=== PATIENT | male | born 1990 | race Caucasian/White ===

== ENCOUNTER 2016-09-02 16:56 | Inpatient (IN) | payer MEDICAID ==
[~2016-09-02] VITALS: Ht 157.5 cm; Wt 69.4 kg
[~2016-09-02 16:56] MED LIST: OLAN15TA5 PO
[2016-09-02 21:20] VITALS: BP 109/69
[2016-09-02] MEDS ORDERED: ZOLPIDEM TARTRATE 10 MG TABLET PO PRN (21:30)
[2016-09-02] MEDS ORDERED: HALOPERIDOL 5 MG TABLET PO PRN (21:30)
[2016-09-02 22:13] VITALS: BP 118/70
[2016-09-03 07:03] VITALS: BP 122/75
[2016-09-03 08:49] VITALS: BP 114/64
[2016-09-03] MEDS: QUEtiapine FUMARATE 300 MG TABLET PO SCH ×2 (08:54→16:41)
[2016-09-03] MEDS: LORazepam 2 MG TABLET PO PRN ×2 (08:54→16:41)
[2016-09-03] MEDS: DIVALPROEX SODIUM 500 MG DR TABLET PO SCH ×2 (08:54→16:41)
[2016-09-03 16:08] VITALS: BP 116/68
[2016-09-04 06:55] VITALS: BP 121/75
[2016-09-04 08:00] VITALS: BP 103/62
[2016-09-04] MEDS: LORazepam 2 MG TABLET PO PRN (08:35)
[2016-09-04] MEDS: DIVALPROEX SODIUM 500 MG DR TABLET PO SCH ×2 (08:35→16:58)
[2016-09-04] MEDS: QUEtiapine FUMARATE 300 MG TABLET PO SCH ×2 (08:35→16:58)
[2016-09-04 16:04] VITALS: BP 118/67
[2016-09-04] MEDS ORDERED: LOPERAMIDE HCL 2 MG CAPSULE PO PRN (20:15)
[2016-09-04] MEDS ORDERED: BENZOCAINE/MENTHOL LOZENGE MM PRN (20:15)
[2016-09-04] MEDS ORDERED: BACITRACIN 28.4 GM OINTMENT TP PRN (20:15)
[2016-09-04] MEDS ORDERED: ACETAMINOPHEN 325 MG TABLET PO PRN (20:15)
[2016-09-04] MEDS ORDERED: PETROLATUM,WHITE 71 GM JELLY TP PRN (20:15)
[2016-09-04] MEDS ORDERED: MAG HYDROX/AL HYDROX/SIMETH ES 30 ML SUSPENSION UDCUP PO PRN (20:15)
[2016-09-04] MEDS ORDERED: MAGNESIUM HYDROXIDE SUSPENSION 30 ML UDCUP PO PRN (20:15)
[2016-09-04] MEDS ORDERED: ALBUTEROL SULFATE HFA 90 MCG/PUFF 8 GM INHALER IH PRN (20:15)
[2016-09-04] MEDS ORDERED: ONDANSETRON HCL 4 MG TABLET PO PRN (20:15)
[2016-09-04] MEDS ORDERED: CloNIDine HCL 0.1 MG TABLET PO PRN (20:15)
[2016-09-04] MEDS ORDERED: IBUPROFEN 600 MG TABLET PO PRN (20:15)
[2016-09-05 06:53] VITALS: BP 120/78
[2016-09-05] MEDS: QUEtiapine FUMARATE 300 MG TABLET PO SCH ×2 (08:22→16:06)
[2016-09-05] MEDS: OMEPRAZOLE 20 MG CAPSULE PO SCH (08:22)
[2016-09-05] MEDS: DOCUSATE SODIUM 100 MG CAPSULE PO SCH (08:22)
[2016-09-05] MEDS: DIVALPROEX SODIUM 500 MG DR TABLET PO SCH ×2 (08:22→16:06)
[2016-09-05 08:23] VITALS: BP 102/65
[2016-09-05 09:32] LABS: HEMATOCRIT 42.1 % (41-53); HEMOGLOBIN 13.8 g/dL (13.5-17.5); MEAN CORPUSCULAR HEMOGLOBIN 28.9 pg (26.0-34.0); MEAN CORPUSCULAR HGB CONC 32.8 G/dL (31.0-37.0); MEAN CORPUSCULAR VOLUME 88 fL (80-100); PLATELET COUNT (AUTO) 156 K/uL (150-450); RED BLOOD CELL COUNT(AUTO) 4.78 MIL/uL (4.50-5.90); RED CELL DISTRIBUTION WIDTH 15.3 % (11.5-14.5); WHITE BLOOD COUNT (AUTO) 4.6 K/uL (4.5-11.0)
[2016-09-05 09:57] LABS: ALANINE AMINOTRANSFERASE 9 U/L (12-78); ALBUMIN 2.9 g/dL (3.4-5.0); ANION GAP 6 mmol/L (8-16); ASPARTATE AMINOTRANSFERASE 17 U/L (15-37); BILIRUBIN,TOTAL 0.2 mg/dL (0.1-1.0); CALCIUM, TOTAL 8.3 mg/dL (8.8-10.5); CARBON DIOXIDE 29 mmol/L (22-29); CHLORIDE 107 mmol/L (98-107); CHOL/HDL RATIO 3.3 (4.2-7.3); CREATININE 0.74 mg/dL (0.60-1.30); GLOMERULAR FILTR. RATE CALC > 60 mL/min (>60); PHOSPHORUS 4.1 mg/dL (2.5-4.9); POTASSIUM 3.9 mmol/L (3.5-5.1); SODIUM SERUM 142 mmol/L (136-145); THYROID STIMULATING HORMONE 8.67 uIU/mL (0.36-3.74); TOTAL PROTEIN, SERUM 6.4 g/dL (6.4-8.2); UREA NITROGEN, BLOOD 16 mg/dL (7-18)
[2016-09-05 11:25] LABS: BAND NEUTROPHILS % (MANUAL) 1 % (1-5); EOSINOPHILS % (MANUAL) 1 % (1-6); LYMPHOCYTES % (MANUAL) 32 % (22-44); RBC MORPHOLOGY COMMENT NORMAL RBC MORPH; TOTAL CELLS COUNTED 100
[2016-09-05 16:00] VITALS: BP 108/65
[2016-09-05] MEDS: LORazepam 2 MG TABLET PO PRN (16:06)
[2016-09-06 06:10] VITALS: BP 108/69
[2016-09-06] MEDS: LEVOTHYROXINE SODIUM 50 MCG TABLET PO SCH (06:38)
[2016-09-06 08:30] VITALS: BP 105/69
[2016-09-06] MEDS: OMEPRAZOLE 20 MG CAPSULE PO SCH (08:40)
[2016-09-06] MEDS: DOCUSATE SODIUM 100 MG CAPSULE PO SCH (08:40)
[2016-09-06] MEDS: DIVALPROEX SODIUM 500 MG DR TABLET PO SCH ×2 (08:42→17:14)
[2016-09-06] MEDS: CHOLECALCIFEROL (VIT D3) 1,000 UNITS TABLET PO SCH (08:44)
[2016-09-06] MEDS: QUEtiapine FUMARATE 300 MG TABLET PO SCH ×2 (08:44→17:14)
[2016-09-06 09:10] LABS: THYROID STIMULATING HORMONE 8.76 uIU/mL (0.36-3.74)
[2016-09-06 16:04] VITALS: BP 109/65
[2016-09-07 06:31] VITALS: BP 115/85
[2016-09-07] MEDS: LEVOTHYROXINE SODIUM 50 MCG TABLET PO SCH (06:42)
[2016-09-07] MEDS: DOCUSATE SODIUM 100 MG CAPSULE PO SCH (08:18)
[2016-09-07] MEDS: OMEPRAZOLE 20 MG CAPSULE PO SCH (08:18)
[2016-09-07] MEDS: QUEtiapine FUMARATE 300 MG TABLET PO SCH ×2 (08:18→17:01)
[2016-09-07] MEDS: CHOLECALCIFEROL (VIT D3) 1,000 UNITS TABLET PO SCH (08:18)
[2016-09-07] MEDS: DIVALPROEX SODIUM 500 MG DR TABLET PO SCH ×2 (08:18→17:01)
[2016-09-07 08:24] VITALS: BP 108/65
[2016-09-07 16:00] VITALS: BP 111/67
[2016-09-08 06:15] VITALS: BP 117/62
[2016-09-08] MEDS: LEVOTHYROXINE SODIUM 50 MCG TABLET PO SCH (06:38)
[2016-09-08 08:08] VITALS: BP 106/62
[2016-09-08] MEDS: OMEPRAZOLE 20 MG CAPSULE PO SCH (09:17)
[2016-09-08] MEDS: CHOLECALCIFEROL (VIT D3) 1,000 UNITS TABLET PO SCH (09:18)
[2016-09-08] MEDS: DOCUSATE SODIUM 100 MG CAPSULE PO SCH (09:18)
[2016-09-08] MEDS: DIVALPROEX SODIUM 500 MG DR TABLET PO SCH ×2 (09:18→16:33)
[2016-09-08] MEDS: QUEtiapine FUMARATE 300 MG TABLET PO SCH ×2 (09:18→16:33)
[2016-09-08 16:09] VITALS: BP 108/74
[2016-09-09] MEDS: LEVOTHYROXINE SODIUM 50 MCG TABLET PO SCH (06:09)
[2016-09-09 06:15] VITALS: BP 102/61
[2016-09-09] MEDS: DIVALPROEX SODIUM 500 MG DR TABLET PO SCH ×2 (08:18→17:00)
[2016-09-09] MEDS: DOCUSATE SODIUM 100 MG CAPSULE PO SCH (08:18)
[2016-09-09] MEDS: QUEtiapine FUMARATE 300 MG TABLET PO SCH ×2 (08:18→17:00)
[2016-09-09] MEDS: OMEPRAZOLE 20 MG CAPSULE PO SCH (08:18)
[2016-09-09] MEDS: CHOLECALCIFEROL (VIT D3) 1,000 UNITS TABLET PO SCH (08:18)
[2016-09-09] MEDS: LORazepam 2 MG TABLET PO PRN ×2 (08:19→17:00)
[2016-09-09 08:23] VITALS: BP 113/64
[2016-09-09 16:03] VITALS: BP 118/66
[2016-09-10] MEDS: LEVOTHYROXINE SODIUM 50 MCG TABLET PO SCH (06:20)
[2016-09-10 06:56] VITALS: BP 107/69
[2016-09-10] MEDS: DOCUSATE SODIUM 100 MG CAPSULE PO SCH (08:21)
[2016-09-10] MEDS: DIVALPROEX SODIUM 500 MG DR TABLET PO SCH ×2 (08:21→16:48)
[2016-09-10] MEDS: OMEPRAZOLE 20 MG CAPSULE PO SCH (08:21)
[2016-09-10] MEDS: LORazepam 2 MG TABLET PO PRN (08:21)
[2016-09-10] MEDS: QUEtiapine FUMARATE 300 MG TABLET PO SCH ×2 (08:21→16:48)
[2016-09-10] MEDS: CHOLECALCIFEROL (VIT D3) 1,000 UNITS TABLET PO SCH (08:21)
[2016-09-10 08:56] VITALS: BP 93/57
[2016-09-10 16:00] VITALS: BP 107/65
[2016-09-11 06:50] VITALS: BP 101/61
[2016-09-11] MEDS: LEVOTHYROXINE SODIUM 50 MCG TABLET PO SCH (06:55)
[2016-09-11 08:06] VITALS: BP 104/66
[2016-09-11] MEDS: CHOLECALCIFEROL (VIT D3) 1,000 UNITS TABLET PO SCH (08:15)
[2016-09-11] MEDS: DIVALPROEX SODIUM 500 MG DR TABLET PO SCH ×2 (08:15→16:52)
[2016-09-11] MEDS: OMEPRAZOLE 20 MG CAPSULE PO SCH (08:15)
[2016-09-11] MEDS: DOCUSATE SODIUM 100 MG CAPSULE PO SCH (08:15)
[2016-09-11] MEDS: QUEtiapine FUMARATE 300 MG TABLET PO SCH ×2 (08:15→16:52)
[2016-09-11] MEDS ORDERED: DIVA500T35 PO (13:50)
[2016-09-11] MEDS ORDERED: QUET100T PO (13:51)
[2016-09-11] MEDS ORDERED: LEVO50TA4 PO (13:51)
[2016-09-11] MEDS ORDERED: OMEP20 PO (13:52)
[2016-09-11] MEDS ORDERED: DSS100 PO (13:52)
[2016-09-11] MEDS ORDERED: VITAD1000 PO (13:53)
[2016-09-11 16:07] VITALS: BP 109/66
== END 2016-09-11 18:35 | disposition home or self-care (01) | DRG 750 ==
LOC: B3A 21:43
PROVIDERS: ADMIT Psychiatry & Neurology Psychiatry; ATTEND Psychiatry & Neurology Psychiatry
DX: F25.9 Schizoaffective disorder, unspecified (principal); E55.9 Vitamin D deficiency, unspecified; K59.00 Constipation, unspecified; M79.642 Pain in left hand; M79.641 Pain in right hand; G47.00 Insomnia, unspecified; E03.9 Hypothyroidism, unspecified; Z87.820 Personal history of traumatic brain injury
CPT/HCPCS: 82306; 83735; 84100; 84439; 84443; 85007; 87081